=== PATIENT | female | born 1950 | race Caucasian/White ===

== ENCOUNTER → 2024-03-06 10:56 | Outpatient (REF) | payer OTHER, SELFPAY | LOC: HWWDC 10:56 | PROVIDERS: ATTENDING PHYSICIAN Internal Medicine | DX: Z12.31 Encounter for screening mammogram for malignant neoplasm of breast (principal) | CPT/HCPCS: 77063; 77067 ==

== ENCOUNTER → 2024-09-16 12:16 | Outpatient (REF) | payer OTHER, SELFPAY | LOC: HWRAD 12:16 | PROVIDERS: ATTENDING PHYSICIAN Specialist; FAMILY PHYSICIAN Internal Medicine | DX: I10 Essential (primary) hypertension (principal); N17.9 Acute kidney failure, unspecified | CPT/HCPCS: 76770 ==

== ENCOUNTER → 2025-03-17 10:48 | Outpatient (REF) | payer OTHER, SELFPAY | LOC: HWRAD 10:48 | PROVIDERS: ATTENDING PHYSICIAN Internal Medicine | DX: R05.3 Chronic cough (principal) | CPT/HCPCS: 71046 ==

== ENCOUNTER → 2025-04-14 08:01 | Outpatient (REF) | payer OTHER, SELFPAY | LOC: HWWDC 08:01 | PROVIDERS: ATTENDING PHYSICIAN Internal Medicine | DX: Z12.31 Encounter for screening mammogram for malignant neoplasm of breast (principal) | CPT/HCPCS: 77063; 77067 ==